=== PATIENT | male | born 1995 | race Caucasian/White ===

== ENCOUNTER 2020-05-20 17:31 | Emergency (ER) | payer OTHER, SELFPAY ==
[2020-05-20 17:41] VITALS: BP 143/90; PULSE 98; RESP 18; O2SAT 100; BMI 20.2
--- NOTE | 2020-05-20 17:51 | XR_ITS ---
PROCEDURE: XR KNEE RT 3V CLINICAL INDICATION: INJURY Posttraumatic pain COMPARISON: No exams were available for comparison FINDINGS: No fracture or dislocation. No lytic or blastic change. There is normal mineralization. The joint spaces are well-preserved. No significant degenerative/arthritic changes. No erosive changes evident. Other findings:None. IMPRESSION: No acute findings. Dictated by: Anastacio Baca MD 05/21/2020 07:31 Electronically signed by Anastacio Baca MD in [place] 05/21/2020 07:31
--- NOTE | 2020-05-20 18:13 | HMH.EDUTC ---
[facility] [place] Disposition Clinical Impression: Contusion, knee and lower leg Qualifiers: Encounter type: initial encounter Laterality: right Qualified Code(s): S80.01XA - Contusion of right knee, initial encounter; S80.11XA - Contusion of right lower leg, initial encounter Disposition: Home, Self-Care Condition on Discharge: Good Instructions: How To Perform RICE (Rest, Ice, Compress, Elevate), How to Apply an Darius Wrap, How to Apply an Elastic Wrap on Knee Additional Instructions: *RICE, Rest the extremity, Ice 15-20 minutes 3-4 times daily, Compress- wear the darius wrap as discussed as much as possible to help reduce swelling and pain, Elevate the extremity when at rest *Darius wrap is for support and help control swelling, use it except in the shower. Be sure that is not to tight but not to loose either *Elevate when resting *Ibuprofen every 6-8 hours as needed for pain an inflammation. If need something more can take Tylenol in between doses of Ibuprofen to help Immediately follow up with your family doctor for new or worsening of symptoms, or no noticeable improvement over the next 3-5 days May call back later this evening or tomorrow after 1pm for official reading of your xray Follow up with family doctor or Dr Olmos with Orthopedics if no improvement or immediately if any worsening of symptoms Return if needed Straight to ER if any life threatening symptoms Referrals: Nicholas Alamo [Primary Care Provider] - As needed Chun Olmos MD [Staff Physician] - As needed (Call and make appointment if you continue to have pain and discomfort) Time of Disposition: 18:31 Medical Decision Making - Samy Inquiry Pt receiving controlled substance: No Samy was queried for this patient: No Vital Signs: 05/20/20 17:41 Pulse Rate [Left Brachial] 98 H Respiratory Rate 18 Blood Pressure [Left Arm] 143/90 H Blood Pressure Mean [Left Arm] 107 Blood Pressure Source [Left Arm] Automatic Cuff Blood Pressure Position [Left Arm] Sitting 02 Sat by Pulse Oximetry 100 Oxygen Delivery Method Room Air Orders (Tests/Meds): ORDERS Category Date Time Status Knee XR right 3 views [XR knee RT 3V] Stat Exams 05/20/20 17:51 Ordered - Radiology Data #1 Image(s): Knee Image Reviewed: Yes I reviewed the patient's radiology image Preliminary Findings: No Fracture Seen No acute fracture, will place in darius wrap and have patient follow up with Dr Olmos in Orthopedics if no improvement [facility] HPI - General Stated complaint: AO 7/4 fell injury to right knee Time Seen by Provider: 05/20/20 17:50 Mode of Arrival: Ambulatory Source of Information: Patient Limitations: No Limitations Description of Symptoms (Recalled from Triage Doc. by RN): PATIENT STATES HE WAS CHASING HIS NEPHEW ON TUESDAY WHEN HE FELL ON A WATER SLIDE AND INJURED HIS RIGHT KNEE. C/O PAIN WITH FLEXION AND STATES IT POPS WHEN HE EXTENDS IT HEENT Symptoms (Recalled from RN notes): No Resp Symptoms (Recalled from RN notes): No Skin Symptoms (Recalled from RN notes): No MS Symptoms (Recalled from RN notes): Yes Functional Status (Recalled from RN notes): WNL - History of Present Illness Provider Complaint: Patient states that he was playing with his nephew and was running on a water slide when he fell and landed on his knees States that he immediately had pain in his righgt knee just below his knee cap and noticed brusing on his knee and [place] area States that day it hurt when he walked States that since he is now able to walk on it just has pain at times with certain ways he steps and turns his knee - Related Data Allergies Allergy/AdvReac Type Severity Reaction Status Date / Time No Known Allergies Allergy Unknown Uncoded 11/01/17 15:25 - Worker's Comp Is this a Worker's Comp case?: No [facility] History - Hepatitis A Screen Drug use history?: No High risk sexual behaviors?: No History of sexually transmitted infection?: No Currently employed?: No Childcare worker?:
[2020-05-20 18:39] VITALS: BP 143/90; PULSE 98; RESP 18; TEMP 36.8; O2SAT 100
== END 2020-05-20 18:44 | disposition home or self-care (01) ==
PROVIDERS: Emergency Provider Nurse Practitioner; PCP Family Medicine
DX: S80.01XA Contusion of right knee, initial encounter (principal); S80.11XA Contusion of right lower leg, initial encounter; W01.0XXA Fall on same level from slipping, tripping and stumbling without subsequent striking against object, initial encounter; Y93.18 Activity, surfing, windsurfing and boogie boarding; Y92.017 Garden or yard in single-family (private) house as the place of occurrence of the external cause; R03.0 Elevated blood-pressure reading, without diagnosis of hypertension
CPT/HCPCS: 73562; 99201

== ENCOUNTER 2021-02-13 22:28 | Emergency (ER) | payer OTHER, SELFPAY ==
[2021-02-13 22:35] VITALS: BP 133/85; PULSE 111; RESP 18; TEMP 36.9; O2SAT 98; BMI 27.6
--- NOTE | 2021-02-13 22:45 | HMH.EDMCLR ---
ED Disposition Clinical Impression: Medical clearance for incarceration Disposition: Home, Self-Care Condition on Discharge: Good Instructions: Blood Alcohol Level Additional Instructions: call pcp for follow up Referrals: Nicholas Alamo [Primary Care Provider] - - Critical Care Critical Care Time: No Attestation: On 02/13/21, the high probability of a clinically significant, sudden or life threatening deterioration of the following system(s) required my full and direct attention, intervention and personal management. The time I documented below is in addition to time spent performing reported procedures but includes the following listed in this critical care notation. Medical Decision Making - Medical Records Medical records reviewed: Yes: I reviewed the patient's medical records. - Samy Inquiry Pt receiving controlled substance: No Vital Signs: 02/13/21 22:35 Temperature 98.5 F Temperature Source Oral Pulse Rate [Right] 111 H Respiratory Rate 18 Blood Pressure [Right Arm] 133/85 Blood Pressure Mean [Right Arm] 101 Blood Pressure Source [Right Arm] Automatic Cuff Blood Pressure Position [Right Arm] Sitting 02 Sat by Pulse Oximetry 98 Oxygen Delivery Method Room Air Medical Clearance HPI - General Chief complaint: Medical Clearance Stated complaint: mEICAL CLEARANCE,POSSIBLE BLOOD DRAW Time Seen by Provider: 02/13/21 22:40 Mode of Arrival: Ambulatory Source of Information: Patient, Medical Record Limitations: No Limitations Description of Symptoms (Recalled from ER Triage Doc. by RN): Pt here by [employer] for Medical Clearance. - History of Present Illness HPI Narrative: no specific c/o MD complaint: medical clearance requested Onset (ago): hour(s) Reason for Medical Clearance: intoxication Place: street Alleged Intoxication: Yes Traumatic Symptoms: denies traumatic injury Associated Symptoms: denies other symptoms Treatments Prior to Arrival: none Home medications: Previous Rx's Medication Instructions Recorded amoxicillin 500 mg capsule 500 mg PO Q12H 10 Days #20 cap 09/10/20 Allergies/Adverse reactions: Allergies Allergy/AdvReac Type Severity Reaction Status Date / Time No Known Allergies Allergy Unknown Uncoded 09/10/20 12:51 [facility] History - Hepatitis A Screen Drug use history?: No High risk sexual behaviors?: No History of sexually transmitted infection?: No Currently employed?: No Childcare worker?: No Do you have indoor plumbing?: Yes Do you have electricity?: Yes Attestation statement:: This patient has been screened for Hepatitis A risk factors. I have reviewed the patient's past medical history: Yes Medical History: Denies:: Diabetes Mellitus Type 1, Diabetes Mellitus Type 2 Other Surgeries: Yes: Appendectomy - Social History Smoking Status: Never smoker Tobacco Type: smokeless tobacco # Packs/Day (cigarettes): 0 Alcohol Intake: current Alcohol Intake Frequency:: a few times a month Substance Use Type: denies use Occupational Status: employed Family Hx:: Non-contributory ROS Obtained: Yes All systems reviewed & no additional complaints - Constitutional Constitutional: Denies fever(s) - Eyes Eyes: Denies change in vision - ENT Ears, Nose, Mouth, and Throat: Denies sore throat - Cardiovascular Cardiovascular: Denies chest pain - Respiratory Respiratory: Denies shortness of breath - Gastrointestinal Gastrointestingal: Denies: abdominal pain - Genitourinary Male Genitourinary: Denies hematuria - Musculoskeletal Musculoskeletal: Denies joint pain, Denies joint swelling - Integumentary/Breasts Skin/Breast: Denies rash - Neurologic Neurologic: Denies headache(s), Denies seizure-like activity Physical Exam - General General appearance: alert - Head Head exam: normocephalic - Eye Eye exam: Present: PERRL, EOMI - ENT ENT exam: Present: mucous membranes moist - Neck Neck exam: Present: trachea midl
[2021-02-13 23:32] VITALS: BP 142/73; PULSE 101; RESP 20; TEMP 36.9; O2SAT 99
== END 2021-02-13 23:34 | disposition home or self-care (01) ==
PROVIDERS: Emergency Provider Emergency Medicine; PCP Family Medicine
DX: Z02.83 Encounter for blood-alcohol and blood-drug test (principal)
CPT/HCPCS: 36415; 99282